=== PATIENT | male | born 1985 | race Caucasian/White ===

== ENCOUNTER → 2017-04-11 | Outpatient (CLI) | payer MEDICAID ==
--- NOTE | 2017-04-11 09:49 | REP ---
Lumbar spine series: Five views. History: Low back pain. Findings: Five views of the lumbar spine show preserved vertebral body heights and normal alignment. Disc spaces are maintained. Pedicles and posterior elements are intact. There is no evidence of spondylolysis or spondylolisthesis. Psoas margins are symmetric. Sacrum and SI joints as visualized appear intact. Impression: Negative lumbar spine radiographs. Signed by Wil Griffin MD 04/11/2017 03:50 P
[2017-04-11 10:51] LABS: BASO % 0.4 % (0.0-1.0); EOS # 0.1 K/mm3 (0.0-0.50); EOS % 2.5 % (0.0-3.0); LARGE UNSTAINED CELL # 0.1 K/mm3 (0.0-0.4); LARGE UNSTAINED CELL % 2.1 % (0.0-4.0); LYMPH # 1.3 K/mm3 (1.5-6.5); LYMPH % 25.1 % (24.0-44.0); MEAN CORPUSCULAR HEMOGLOBIN 31.6 pg (27.0-33.0); MEAN CORPUSCULAR HGB CONC 34.8 g/dl (32.0-36.5); MEAN CORPUSCULAR VOLUME 90.7 fl (80.0-96.0); MONO # 0.3 K/mm3 (0.0-0.8); MONO % 6.6 % (0.0-5.0); NEUTROPHILS # 3.3 K/mm3 (1.8-7.7); NEUTROPHILS % 63.2 % (36.0-66.0); PLATELET COUNT, AUTOMATED 289 k/mm3 (150-450); RED CELL DISTRIBUTION WIDTH 12.1 % (11.5-14.5); WHITE BLOOD COUNT 5.2 K/mm3 (4.0-10.0)
[2017-04-11 11:38] LABS: ALBUMIN 4.1 GM/DL (3.2-5.2); ALBUMIN/GLOBULIN RATIO 1.28 (1.00-1.93); ALKALINE PHOSPHATASE 76 U/L (45-117); ALT/SGPT 62 U/L (12-78); ANION GAP 5 MEQ/L (8-16); AST/SGOT 22 U/L (15-37); BILIRUBIN,TOTAL 0.7 MG/DL (0.2-1.0); BLOOD UREA NITROGEN 14 MG/DL (7-18); CARBON DIOXIDE LEVEL 33 MEQ/L (21-32); CHLORIDE LEVEL 102 MEQ/L (98-107); CREATININE FOR GFR 1.02 MG/DL (0.70-1.30); GLOMERULAR FILTRATION RATE > 60.0 (>60); GLUCOSE, FASTING 78 MG/DL (70-105); POTASSIUM SERUM 4.7 MEQ/L (3.5-5.1); SODIUM LEVEL 140 MEQ/L (136-145); TOTAL PROTEIN 7.3 GM/DL (6.4-8.2)
== END ==
LOC: M LAB 09:04
PROVIDERS: ATTEND Nurse Practitioner Family
DX: M54.5 Low back pain (principal)

== ENCOUNTER 2017-04-19 07:41 | Outpatient (RCR) | payer MEDICAID | END 2017-04-30 | LOC: M PT 07:41 | PROVIDERS: ATTEND Nurse Practitioner Family | DX: Z51.89 Encounter for other specified aftercare (principal); M54.5 Low back pain; G89.29 Other chronic pain ==

== ENCOUNTER → 2020-04-08 | Outpatient (CLI) | payer OTHER, MEDICAID ==
--- NOTE | 2020-04-30 11:23 | REP ---
RIGHT KNEE SERIES: CLINICAL: Pain with recent trauma. TECHNIQUE: AP, lateral, bilateral oblique and sunrise views of the right knee. FINDINGS: The sunrise view demonstrates mild prepatellar soft tissue swelling. The osseous structures and joint spaces are intact. There is no evidence for acute or healed injury. No arthritic changes are appreciated. No obvious effusion noted. IMPRESSION: Mild prepatellar swelling. No acute fracture or dislocation. MTDD
--- NOTE | 2020-04-30 11:23 | REP ---
FINGER STUDY CLINICAL: Pain and swelling with prior injury. COMPARISON: AP, lateral, bilateral oblique views of the right third digit. FINDINGS: Osseous structures, joint spaces, and surrounding soft tissues appear normal. No evidence for acute or healed injury. No subcutaneous emphysema or foreign body. IMPRESSION: Normal examination. No evidence for acute injury. MTDD
== END ==
LOC: M WUC 15:39
PROVIDERS: ATTEND Physician Assistant
DX: S60.031A Contusion of right middle finger without damage to nail, initial encounter (principal); S80.01XA Contusion of right knee, initial encounter; X58.XXXA Exposure to other specified factors, initial encounter; Y92.89 Other specified places as the place of occurrence of the external cause; Y93.9 Activity, unspecified; Y99.9 Unspecified external cause status

== ENCOUNTER 2024-10-25 10:10 | Emergency (ER) | payer OTHER, MEDICAID ==
[~2024-10-25] VITALS: Ht 170.2 cm; Wt 64.5 kg
[2024-10-25 10:14] VITALS: BP 139/72; TEMP 97; O2SAT 98
[2024-10-25] MEDS ORDERED: HYDR-3713 (10:20)
[2024-10-25] MEDS ORDERED: CEPH500C (10:20)
== END 2024-10-25 10:25 | disposition left against medical advice (07) ==
LOC: M ED 10:10
DX: Z53.21 Procedure and treatment not carried out due to patient leaving prior to being seen by health care provider (principal)

== ENCOUNTER → 2024-10-26 | Outpatient (CLI) | payer OTHER ==
[~2024-10-26] MED LIST: CEPH500C; HYDR-3713; IBUP-1022
== END ==
LOC: M RAD 12:41
PROVIDERS: ATTEND Physician Assistant
DX: S62.615B Displaced fracture of proximal phalanx of left ring finger, initial encounter for open fracture (principal)

== ENCOUNTER 2024-10-29 06:21 | Day surgery (SDC) | payer OTHER ==
[~2024-10-29] VITALS: Ht 167.6 cm; Wt 64.8 kg
[~2024-10-29 06:21] MED LIST changes: +ACETAMINOPHEN 1000MG/100ML IV BAG As Ordered ONE; +GLYCOPYRROLATE INJ 0.2 MG/ML 2 ML VIAL As Ordered ONE; -IBUP-1022; +LIDOCAINE 2% 100MG/5ML SDV (FOR ANES.) As Ordered ONE; +MIDAZOLAM INJ 2MG/2ML VIAL As Ordered ONE; +ONDANSETRON 4MG 2ML VIAL As Ordered ONE; +ROCURONIUM BROMIDE 50MG/5ML VIAL As Ordered ONE; +SUGAMMADEX SODIUM 500 MG/5 ML VIAL (BRIDION) As Ordered ONE; +fentaNYL 100 MCG/2 ML INJECTION As Ordered ONE; +propofoL 200 MG/20 ML VIAL As Ordered ONE
[2024-10-29] MEDS ORDERED: IBUP-1022 (06:48)
[2024-10-29] MEDS ORDERED: LR 1,000 ML IV SCH ×2 (07:10→10:15)
[2024-10-29] MEDS ORDERED: KETOROLAC 30 MG/ML 1ML VIAL As Ordered ONE (07:37)
[2024-10-29] MEDS ORDERED: KETAMINE HCL 200MG/20ML VIAL As Ordered ONE (07:45)
[2024-10-29] MEDS: ceFAZolin SODIUM 2 GM VIAL As Ordered ONE (08:37)
[2024-10-29] MEDS ORDERED: HYDROmorphone HCL 2MG/ML 1ML VIAL As Ordered ONE (08:40)
[2024-10-29] MEDS: BACITRACIN OINTMENT 30GM TUBE As Ordered ONE (10:05)
[2024-10-29] MEDS ORDERED: fentaNYL 100 MCG/2 ML INJECTION IV PRN (10:15)
[2024-10-29] MEDS ORDERED: ONDANSETRON 4MG 2ML VIAL IV PRN (10:15)
[2024-10-29] MEDS ORDERED: oxyCODONE 5MG TAB PO PRN (10:15)
[2024-10-29] MEDS ORDERED: HYDROMORPHONE HCL 0.5 MG/ 0.5 ML SYRINGE IV PRN (10:15)
[2024-10-29 11:25] VITALS: BP 136/83; TEMP 98.5; O2SAT 95
== END 2024-10-29 11:30 | disposition home or self-care (01) ==
LOC: M SDC 06:21
PROVIDERS: ATTEND Orthopaedic Surgery Hand Surgery
DX: S68.625A Partial traumatic transphalangeal amputation of left ring finger, initial encounter (principal); S63.413A Traumatic rupture of collateral ligament of left middle finger at metacarpophalangeal and interphalangeal joint, initial encounter; W29.8XXA Contact with other powered hand tools and household machinery, initial encounter; Y92.9 Unspecified place or not applicable; Y93.9 Activity, unspecified; Y99.9 Unspecified external cause status; F17.220 Nicotine dependence, chewing tobacco, uncomplicated; Z79.2 Long term (current) use of antibiotics; Z79.891 Long term (current) use of opiate analgesic
CPT/HCPCS: 26418; 26776; 26951; 76000; 88304; 88311; J0131; J0665; J0690; J1100; J1171; J1596; J1885; J2250; J2405; J3010

== ENCOUNTER → 2024-11-06 | Outpatient (CLI) | payer OTHER ==
[~2024-11-06] MED LIST changes: -ACETAMINOPHEN 1000MG/100ML IV BAG As Ordered ONE; -GLYCOPYRROLATE INJ 0.2 MG/ML 2 ML VIAL As Ordered ONE; +IBUP-1022; -LIDOCAINE 2% 100MG/5ML SDV (FOR ANES.) As Ordered ONE; -MIDAZOLAM INJ 2MG/2ML VIAL As Ordered ONE; -ONDANSETRON 4MG 2ML VIAL As Ordered ONE; -ROCURONIUM BROMIDE 50MG/5ML VIAL As Ordered ONE; -SUGAMMADEX SODIUM 500 MG/5 ML VIAL (BRIDION) As Ordered ONE; -fentaNYL 100 MCG/2 ML INJECTION As Ordered ONE; -propofoL 200 MG/20 ML VIAL As Ordered ONE
== END ==
LOC: M SOG 07:48
PROVIDERS: ATTEND Physician Assistant
DX: S68.625A Partial traumatic transphalangeal amputation of left ring finger, initial encounter (principal); S63.413A Traumatic rupture of collateral ligament of left middle finger at metacarpophalangeal and interphalangeal joint, initial encounter; W18.30XA Fall on same level, unspecified, initial encounter; Y92.009 Unspecified place in unspecified non-institutional (private) residence as the place of occurrence of the external cause

== ENCOUNTER → 2024-11-30 | Outpatient (CLI) | payer OTHER | LOC: M SOG 07:57 | PROVIDERS: ATTEND Physician Assistant | DX: S68.625D Partial traumatic transphalangeal amputation of left ring finger, subsequent encounter (principal); S63.413 Traumatic rupture of collateral ligament of left middle finger at metacarpophalangeal and interphalangeal joint; M79.89 Other specified soft tissue disorders ==